=== PATIENT | male | born 1985 | race African-American/Black ===

== ENCOUNTER 2019-05-23 23:47 | Emergency (ER) | payer MEDICAID ==
[~2019-05-23] VITALS: Ht 180.3 cm; Wt 88.0 kg
[2019-05-24 00:21] VITALS: BP 134/56
[2019-05-24] MEDS ORDERED: ACETAMINOPHEN 325MG TABLET PO ONE (06:45)
== END 2019-05-24 06:00 | disposition left against medical advice (07) ==
LOC: ER 23:47
DX: R51 Headache (principal); Z53.21 Procedure and treatment not carried out due to patient leaving prior to being seen by health care provider

== ENCOUNTER 2019-06-11 20:26 | Emergency (ER) | payer MEDICAID ==
[~2019-06-11] VITALS: Ht 180.3 cm; Wt 91.0 kg
[2019-06-11] MEDS ORDERED: KETOROLAC 60MG/2ML VIAL IM ONE (22:00)
[2019-06-11 23:15] VITALS: BP 131/69
== END 2019-06-11 23:14 | disposition home or self-care (01) ==
LOC: ER 20:26
DX: S50.02XA Contusion of left elbow, initial encounter (principal); R07.89 Other chest pain; S90.02XA Contusion of left ankle, initial encounter; Y93.55 Activity, bike riding; V13.4XXA Pedal cycle driver injured in collision with car, pick-up truck or van in traffic accident, initial encounter; Y92.410 Unspecified street and highway as the place of occurrence of the external cause
CPT/HCPCS: 71045; 73070; 73610; 96372; 99283; J1885

== ENCOUNTER 2019-08-02 08:33 | Emergency (ER) | payer MEDICAID ==
[~2019-08-02] VITALS: Ht 180.3 cm; Wt 90.9 kg
[2019-08-02 08:52] VITALS: BP 136/82
[2019-08-02] MEDS ORDERED: KETOROLAC 60MG/2ML VIAL IM ONE (09:45)
[2019-08-02] MEDS ORDERED: DIAZEPAM 5 MG TABLET PO ONE (09:45)
== END 2019-08-02 11:02 | disposition home or self-care (01) ==
LOC: ER 08:40
DX: S39.012A Strain of muscle, fascia and tendon of lower back, initial encounter (principal); X50.0XXA Overexertion from strenuous movement or load, initial encounter; R03.0 Elevated blood-pressure reading, without diagnosis of hypertension; Y93.89 Activity, other specified; Y92.030 Kitchen in apartment as the place of occurrence of the external cause; F17.210 Nicotine dependence, cigarettes, uncomplicated
CPT/HCPCS: 96372; 99283; J1885

== ENCOUNTER 2020-02-16 03:05 | Emergency (ER) | payer MEDICAID ==
[~2020-02-16] VITALS: Ht 175.3 cm; Wt 85.0 kg
[2020-02-16] MEDS ORDERED: KETOROLAC 30MG/ML VIAL IM ONE (03:45)
[2020-02-16 04:00] VITALS: BP 165/98
== END 2020-02-16 04:07 | disposition home or self-care (01) ==
LOC: ER 03:05
DX: K08.89 Other specified disorders of teeth and supporting structures (principal)
CPT/HCPCS: 96372; 99283; J1885

== ENCOUNTER 2020-02-26 07:16 | Emergency (ER) | payer MEDICAID ==
[~2020-02-26] VITALS: Ht 180.3 cm; Wt 88.0 kg
[2020-02-26 09:03] VITALS: BP 130/82
== END 2020-02-26 09:05 | disposition home or self-care (01) ==
LOC: ER 07:16
DX: J02.9 Acute pharyngitis, unspecified (principal)
CPT/HCPCS: 99281; 99283

== ENCOUNTER 2020-07-05 13:43 | Emergency (ER) | payer MEDICAID ==
[~2020-07-05] VITALS: Ht 180.3 cm; Wt 100.0 kg
[2020-07-05] MEDS ORDERED: TETANUS, DIPHTHERIA, PERTUSSIS VAC/PF 0.5ML (>7YR OLD) IM ONE (15:15)
[2020-07-05] MEDS ORDERED: IBUPROFEN 600MG TABLET PO ONE (15:15)
[2020-07-05 16:03] VITALS: BP 138/79
== END 2020-07-05 16:05 | disposition home or self-care (01) ==
LOC: ER 13:43
DX: T23.232A Burn of second degree of multiple left fingers (nail), not including thumb, initial encounter (principal); X15.3XXA Contact with hot saucepan or skillet, initial encounter; Y93.89 Activity, other specified; Y92.010 Kitchen of single-family (private) house as the place of occurrence of the external cause; Z23 Encounter for immunization
CPT/HCPCS: 90471; 90715; 99283